=== PATIENT | male | born 1995 | race Caucasian/White ===

== ENCOUNTER 2022-08-02 20:30 | Emergency (ER) | payer OTHER, SELFPAY ==
[2022-08-02 20:33] VITALS: BP 135/90; PULSE 106; RESP 14; TEMP 36.9; O2SAT 95; BMI 23.5
--- NOTE | 2022-08-02 20:42 | XRR_ITS ---
PROCEDURE INFORMATION: Exam: XR Right Ankle Exam date and time: 08/02/2022 7:50 PM Age: 27 years old Clinical indication: Injury or trauma; Other: Slipped; Swelling (edema); Ankle; Right TECHNIQUE: Imaging protocol: Radiologic exam of the right ankle. Views: 3 or more views. COMPARISON: No relevant prior studies available. FINDINGS: Bones/joints: Normal. Soft tissues: Soft tissue swelling about the ankle, greatest medially. XR/XR ankle RT min 3V* [id number] IMPRESSION: Soft tissue swelling about the ankle, greatest medially.
--- NOTE | 2022-08-02 21:12 | ED_ITS ---
HPI - Extremity Problem General: Chief complaint: Extremity Injury, Lower Stated complaint: Left Foot Injury Time Seen by Provider: 08/02/22 20:42 History of Present Illness: 27-year-old male patient comes in today with injury to the right ankle. [place] against the river [place]. Patient has a bruise and abrasion to the mid uribe of the right lower leg, and significant swelling and bruising to the right ankle. Pulses are intact. Sensation is intact. Associated symptoms: Deny chest pain or fever(s) Review of Systems Const: Denies: fever(s) Card: Denies: chest pain Resp: Denies: dyspnea Musc: Reports: extremity pain and extremity swelling Skin/Breast: Reports: new lesions Physical Exam Const: COMMON NORMALS: alert HENMT: COMMON NORMALS: atraumatic HEAD & SCALP: atraumatic Neck/C-Spine: COMMON NORMALS: full ROM Resp: COMMON NORMALS: normal respiratory effort Cardio: COMMON NORMALS: regular rate RATE: regular rate Back/Pelvis: COMMON NORMALS: thoracic and lumbar spine normal to inspection Extremity: RIGHT LOWER EXTREMITY: Yes foot & digits (Swelling, lateral tenderness, ecchymosis.) Right ankle: Yes inspection, Yes palpation, Yes ROM and Yes neurovascular exam Neuro: SENSORIUM/ORIENTATION: Yes alert Skin: TRAUMA: abrasion (Superficial anterior right lower leg) Course Vital Signs: Vital signs: Vital Signs Temperature 98.4 F 08/02/22 20:33 Pulse Rate 106 H 08/02/22 20:33 Respiratory Rate 14 08/02/22 20:33 Blood Pressure 135/90 08/02/22 20:33 Pulse Oximetry 95 08/02/22 20:33 Oxygen Delivery Me thod Room Air 08/02/22 20:33 MDM - Extremity (Nontraumatic) Medical Decision Making Patient comes in for evaluation of the right ankle. On exam patient has swelling and bruising to the lateral right ankle. Distal pulses and sensation are intact. Patient also has a superficial abrasion with bruising to the mid uribe. Differential diagnosis includes fracture, sprain, dislocation. X-rays noted no fracture. Patient has significant swelling to the ankle suggested follow-up in 1 week with podiatry for further evaluation and treatment as needed. Patient reported understanding and agreed to plan. Lab Data Radiology Impressions Ankle X-Ray 08/02/22 20:42 IMPRESSION: Soft tissue swelling about the ankle, greatest medially. Discharge Plan Discharge Patient Disposition: Home Clinical Impression: Ankle sprain and strain Condition: Stable Discharge Orders: Discharge ED (Routine); Ordered 08/02/22 Ordered By: Asael Pitt Referrals: Miguel Angel Owens MD [Primary Care Provider] - Discharge Diet: Usual diet Discharge Activity: Increase activity as tolerated Patient Instructions: Ankle Sprain (ED) Activity Restrictions/Additional Instructions: Home and rest. Elevate ankle as much as possible. Use ice packs to help with pain and swelling. Use acetaminophen and ibuprofen for further pain relief. Use elastic bandage to help with swelling and comfort. Use crutches until he can bear weight comfortably. If no improvement is noted after 5 days I recommend reevaluation with primary care or podiatry. Coding Level of Care Code ED Script Coordinator for Bran Jarrett
[2022-08-02 21:23] VITALS: BP 121/71; PULSE 98; RESP 18; O2SAT 97
--- NOTE | 2022-08-03 08:09 | DCPLANNER ---
Addendum entered by Ivory Wang 08/05/22 13:10: Patient had a follow up appointment scheduled for 08.05.[address] Edwards at [facility] - patient did attend appointment. Original Note: government sales manager had message to schedule a follow up appointment for patient with podiatry. government sales manager sent patients information to the front office staff at podiatry. Patients information will be printed and reviewed. Clinic will call patient with appointment information.
== END 2022-08-02 21:27 | disposition home or self-care (01) ==
PROVIDERS: Emergency Provider Nurse Practitioner Family; PCP Family Medicine
DX: S93.401A Sprain of unspecified ligament of right ankle, initial encounter (principal); S96.911A Strain of unspecified muscle and tendon at ankle and foot level, right foot, initial encounter; X50.1XXA Overexertion from prolonged static or awkward postures, initial encounter; Y92.828 Other wilderness area as the place of occurrence of the external cause
CPT/HCPCS: 73610; 99283

== ENCOUNTER 2022-08-05 15:07 | Outpatient (CLI) | payer OTHER, SELFPAY | END 2022-08-05 15:08 | disposition home or self-care (01) | LOC: SPT 15:08 | PROVIDERS: PCP Family Medicine; Visit Provider Podiatrist Foot & Ankle Surgery | DX: Z46.89 Encounter for fitting and adjustment of other specified devices (principal); S82.831D Other fracture of upper and lower end of right fibula, subsequent encounter for closed fracture with routine healing; X58.XXXD Exposure to other specified factors, subsequent encounter | CPT/HCPCS: 97760; L4361 ==

== ENCOUNTER → 2022-08-25 08:37 | Outpatient (BNVA) | payer OTHER, SELFPAY | PROVIDERS: PCP Family Medicine; Visit Provider Podiatrist Foot & Ankle Surgery | DX: S82.831D Other fracture of upper and lower end of right fibula, subsequent encounter for closed fracture with routine healing (principal); W16.112D Fall into natural body of water striking water surface causing other injury, subsequent encounter | CPT/HCPCS: 73610 ==

== ENCOUNTER → 2022-09-09 11:40 | Outpatient (BNVA) | payer OTHER, SELFPAY | PROVIDERS: PCP Family Medicine; Visit Provider Podiatrist Foot & Ankle Surgery | DX: S82.831A Other fracture of upper and lower end of right fibula, initial encounter for closed fracture (principal); W19.XXXA Unspecified fall, initial encounter; Y92.828 Other wilderness area as the place of occurrence of the external cause | CPT/HCPCS: 73610 ==

== ENCOUNTER → 2022-09-23 13:11 | Outpatient (BNVA) | payer OTHER, SELFPAY | PROVIDERS: PCP Family Medicine; Visit Provider Podiatrist Foot & Ankle Surgery | DX: S82.831D Other fracture of upper and lower end of right fibula, subsequent encounter for closed fracture with routine healing (principal); X58.XXXD Exposure to other specified factors, subsequent encounter | CPT/HCPCS: 73610 ==

== ENCOUNTER 2022-09-23 15:57 | Outpatient (CLI) | payer OTHER, SELFPAY | END 2022-09-23 15:58 | disposition home or self-care (01) | LOC: SPT 15:58 | PROVIDERS: PCP Family Medicine; Visit Provider Podiatrist Foot & Ankle Surgery | DX: Z46.89 Encounter for fitting and adjustment of other specified devices (principal); S82.831D Other fracture of upper and lower end of right fibula, subsequent encounter for closed fracture with routine healing; X58.XXXD Exposure to other specified factors, subsequent encounter | CPT/HCPCS: 97760; L1902 ==

== ENCOUNTER → 2022-10-21 14:27 | Outpatient (BNVA) | payer OTHER, SELFPAY | PROVIDERS: PCP Family Medicine; Visit Provider Podiatrist Foot & Ankle Surgery | DX: S82.831D Other fracture of upper and lower end of right fibula, subsequent encounter for closed fracture with routine healing; X58.XXXD Exposure to other specified factors, subsequent encounter | CPT/HCPCS: 73610 ==